=== PATIENT | female | born 1945 | race Caucasian/White ===

== ENCOUNTER 2017-06-22 20:09 | Observation (INO) ==
[2017-06-22] MEDS ORDERED: Furosemide 20 MG TABLET PO SCH (23:45)
[2017-06-22] MEDS ORDERED: Naloxone 0.4 MG/ML INJ IVP PRN (23:48)
[2017-06-22] MEDS ORDERED: predniSONE 20 MG TABLET PO ONE (23:53)
[2017-06-23] MEDS ORDERED: Gadolinium Contrast Agent (WT Based) IV PRN
--- NOTE | 2017-06-23 00:11 | Internal Med History&Physical ---
Date of Encounter: 06/23/17 Time of Encounter: 23:30 Internal Medicine - H&P: HPI Chief complaint: Transfer from [facility] for htn urgency Admitted From: Hospital to Hospital Transfer Plans for Post Hospital Care: Home History of present illness: Ms. Fernández is a 71 year old female with PMH of HTN, chronic neck pain, anxiety who was transferred from [facility] for management of severe headache secondary to hypertensive urgency. Pt reports of having diffuse severe throbbing headache since yesterday along with elevated blood pressure. She states her BP is always controlled with her home medications however that was not the case yesterday. She states she took excedrin yesterday with mild improvement in her headache. Since her headache and elevated BP persisted, she decided to go to the ER. In the ER she was noted to be severely hypertensive requiring initiation of Nicardipine drip and decision to transfer the patient to [facility] was made. During my evaluation, pt reports of having chronic neck pain, however she states her current head and neck pain is different than the chronic pain. She is noted to have improvement in her headache since her BP has been controlled, however she remains on Nicaridpine drip. She denies any pain radiating to her jaw or vision changes. Noted to have elevated ESR. CT findings reported chronic changes and no acute abnormality. Pt noted to have positive UA for UTI, however denies any urinary symptoms at this time. Denies any fevers or chills. Of note: Pt had chest pain few weeks ago and was seen by a security administrator on outpatient basis. She was found to be bradycardic and outpatient holter monitoring and echo was ordered. Pt has yet to undergo those testing. She denies any chest pain at this time. Past Med Surg Social Fam HX - Past Medical History Medical history: arthritis, GERD, hyperlipidemia, hypertension, pulmonary embolus, other Psychiatric history: no psych history - Past Surgical History Surgical History: appendectomy, cholecystectomy, knee replacement, orthopedic, other, other - Social History Smoking Status: Never smoker Smokeless Tobacco Status: No Alcohol use: none Drug use: none Internal Medicine - H&P: Meds Primidone [Mysoline] 50 mg PO TID 01/11/15 [History] Gabapentin [Gralise] 600 mg PO BID 02/02/16 [History] Oxybutynin [Ditropan] 5 mg PO BID 02/02/16 [History] Losartan/Hydrochlorothiazide [Losartan-Hctz 50-12.5 mg Tab] 1 each PO DAILY [History] Cholecalciferol (Vitamin D3) [Vitamin D] 1,000 unit PO DAILY 06/22/17 [History] Furosemide [Lasix] 20 mg PO AD 06/22/17 [History] Meloxicam 15 mg PO DAILY 06/22/17 [History] Potassium 20 meq PO DAILY 06/22/17 [History] Vistaril 25 mg PO BID 06/22/17 [History] Vitamin E 400 unit PO DAILY 06/22/17 [History] Zanaflex 4 mg PO BID 06/22/17 [History] 3 Allergy/AdvReac Type Severity Reaction Status Date / Time cephalexin [From Keflex] AdvReac Itching Verified 06/22/17 12:06 Sulfa (Sulfonamide AdvReac Itching Verified 06/22/17 12:06 Antibiotics) All Systems PM: A 10-system review of systems was performed and is negative for pertinent findings except as documented above in the HPI. - Constitutional Constitutional: as per HPI, no chills, no excessive sweating, no fatigue, no fever(s), no falls, no lethargy, no malaise, no night sweats - Constitutional Vitals: Temp Pulse Resp BP Pulse Ox 97.6 F 67 17 149/73 97 06/22/17 22:02 06/22/17 22:02 06/22/17 22:02 06/22/17 22:45 06/22/17 22:20 General appearance: Present: A&O X 3, no acute distress, obese, answers questions appropriately - Head Head exam: Present: atraumatic, normocephalic - Eye Eye exam: Present: conjuntiva pink, sclera anicteric - Respiratory Respiratory exam: Present: CTAB. Absent: accessory muscle use, rales, rhonchi, wheezes - Cardiovascular Cardiovascular exam: Present: RRR, +S1, +S2. Absent: diastolic murmur, gallop, rubs, systolic murmur - GI/Abdominal GI/Abdominal exam: Present: normal bowel sounds, soft, no peritoneal signs. Absent: distended, tenderness - Extremities Exam Extremities exam: Present: warm, radial pulses palpable and symmetrical. Absent : calf tenderness, cyanotic, pedal edema - Neurological Exam Neurological exam: Present: oriented X3 - Assessment and plan (1) Hypertensive urgency Current Visit: No Status: Acute Assessment and plan: Headache likely secondary to HTN urgency, however given clinical presentation and elevated ESR, will give one time dose of Prednisone 40mg PO Titrate off nicardipine drip as BP permits f/u MR head and neck continue home BP meds close monitoring of BP (2) Headache Current Visit: No Status: Acute Assessment and plan: plan as listed above Qualifiers: Headache type: unspecified Headache chronicity pattern: unspecified pattern Intractability: not intractable Qualified Code(s): R51 - Headache (3) UTI (urinary tract infection) Current Visit: No Status: Acute Assessment and plan: UA consistent with UTI, however pt asymptomatic hx of Kleb Pneumo UTI with intermediate sensitivity to Nitrofurantoin which is what the patient received prior to her transfer to the [facility] will start Levofloxacin f/u urine cultures Qualifiers: Urinary tract infection type: site unspecified Hematuria presence: without hematuria Qualified Code(s): N39.0 - Urinary tract infection, site not specified (4) DVT prophylaxis Current Visit: Yes Status: Acute Assessment and plan: Heparin SQ (5) Obesity (BMI 30-39.9) Current Visit: Yes Status: Acute - Time Spent With Patient Total time spent is greater than 50% in coordination of care (as documented) at patient's floor/unit and/or counseling patient:
[2017-06-23] MEDS: niCARdipine 40 MG/200 ML MLS IVC SCH ×2 (00:17→19:17)
[2017-06-23] MEDS: Gabapentin 300 MG CAPSULE PO SCH ×3 (00:18→20:03)
[2017-06-23] MEDS: *HR* OxyCODONE Immed Rel 5 MG TABLET PO PRN ×3 (00:18→17:12)
[2017-06-23 00:35] LABS: Basophils # 0.1 K/mcL (0.0-0.2); Basophils % 0.6 %; Eosinophils # 0.1 K/mcL (0.0-0.6); Eosinophils % 1.2 %; Hematocrit 44.3 % (35.3-44.9); Hemoglobin 14.5 g/dL (11.5-15.4); Immature Granulocytes % 0.3 % (0-4); Lymphocytes # 2.1 K/mcL (0.6-4.6); Lymphocytes % 18.8 %; Mean Corpuscular HGB Conc 32.7 g/dL (31.6-35.5); Mean Corpuscular Volume 94.9 fL (83.0-100.0); Mean Platelet Volume 9.8 fL (9.4-12.4); Monocytes # 0.5 K/mcL (0.0-1.3); Monocytes % 4.7 %; Neutrophils # 8.1 K/mcL (1.6-8.9); Platelet Count 285 K/mcL (140-400); Red Blood Count 4.67 M/mcL (3.82-4.97); Segmented Neutrophils % 74.4 %
[2017-06-23 00:56] LABS: BUN/Creatinine Ratio 30 (6-26); Blood Urea Nitrogen 18 mg/dL (8-23); Calcium 9.6 mg/dL (8.6-10.3); Carbon Dioxide 24 mEq/L (23-29); Chloride 106 mEq/L (98-107); Glucose 120 mg/dL (70-105); Osmolality,Calculated 289 (280-300); Phosphorous 3.2 mg/dL (2.7-4.5); Potassium 4.1 mEq/L (3.5-5.1); Sodium 138 mEq/L (136-145); eGFR For African Americans > 60 (> 60); eGFR For Non-African Americans > 60 (> 60)
[2017-06-23] MEDS: Levofloxacin 750 MG/150 ML 750 MG/150 ML BAG IVPB SCH (06:48)
[2017-06-23] MEDS: *HR* Heparin 5,000 UNIT/ML VIAL SQ SCH ×2 (06:49→17:12)
[2017-06-23] MEDS: Cholecalciferol (D-3) 1,000 UNIT TABLET PO SCH (08:56)
[2017-06-23] MEDS: Losartan/HCTZ 50-12.5 TABLET PO SCH (08:56)
[2017-06-23] MEDS: Primidone 50 MG TABLET PO SCH ×3 (08:57→20:03)
[2017-06-23] MEDS ORDERED: tiZANidine 4 MG TABLET PO SCH (09:00)
[2017-06-23] MEDS ORDERED: HYDROXYZINE PAMOATE 25 MG PO SCH (09:00)
[2017-06-23] MEDS: *HR* HYDROcodone/Acet 5/325 mg TABLET PO PRN ×2 (13:53→23:25)
--- NOTE | 2017-06-23 14:56 | Internal Med Progress Note ---
Date of Encounter: 06/23/17 Time of Encounter: 09:10 - Assessment and plan (1) Headache Current Visit: Yes Status: Acute Assessment and plan: most likely related to uncontrolled HTN; ESR is only mildly elevated and patient has no temporal pain/tenderness or blurred vision; will not continue steroids for temporal arteritis at this time; supportive care with PRN Tylenol and Oxycodone; MRI brain shows no acute abnormality; MRI C-Spine shows osteophytes and disc bulging at several sites; previous C4-6 surgery; Qualifiers: Headache type: unspecified Headache chronicity pattern: unspecified pattern Intractability: not intractable Qualified Code(s): R51 - Headache (2) Hypertensive urgency Current Visit: Yes Status: Acute Assessment and plan: BP improving; has been on Nicardipine drip, will wean off and resume oral home meds; low Na diet; check TTE; (3) UTI (urinary tract infection) Current Visit: Yes Status: Acute Assessment and plan: urinalysis s/o- UTI; preliminary urine culture with gram negative rods; f/up final culture and continue IV Levaquin; Qualifiers: Urinary tract infection type: site unspecified Hematuria presence: without hematuria Qualified Code(s): N39.0 - Urinary tract infection, site not specified (4) DVT prophylaxis Current Visit: Yes Status: Acute (5) Obesity (BMI 30-39.9) Current Visit: Yes Status: Chronic - Time Spent With Patient Total time spent is greater than 50% in coordination of care (as documented) at patient's floor/unit and/or counseling patient: - Subjective Interval history: Improving headache but has 5/10 posterior headache and neck pain, that is different from her chronic neck pain related to neck surgery; no chest pain, dyspnea, palpitations, leg welling; - Constitutional Vitals: Temp Pulse Resp BP Pulse Ox 97.8 F 85 16 141/80 95 06/23/17 11:18 06/23/17 13:49 06/23/17 13:49 06/23/17 13:49 06/23/17 11:18 General appearance: Present: A&O X 3, obese, answers questions appropriately - Respiratory Respiratory exam: Present: CTAB. Absent: accessory muscle use, rales, rhonchi, wheezes - Cardiovascular Cardiovascular exam: Present: RRR, +S1, +S2. Absent: diastolic murmur, gallop, rubs, systolic murmur - GI/Abdominal GI/Abdominal exam: Present: normal bowel sounds, soft, no peritoneal signs. Absent: distended, tenderness - Extremities Exam Extremities exam: Present: full ROM, warm, radial pulses palpable and symmetrical. Absent: calf tenderness, cyanotic, pedal edema - Neurological Exam Neurological exam: Present: CN II-XII intact, oriented X3, no focal deficits. Absent: pronater drift, facial droop, speech deficit Internal Medicine: Result - Labs CBC & Chem 7: 06/23/17 00:23 06/23/17 00:23 Labs: Short CBC 06/23/17 Range/Units 00:23 WBC 10.9 (4.3-11.1) K/mcL Hgb 14.5 (11.5-15.4) g/dL Hct 44.3 (35.3-44.9) % Plt Count 285 (140-400) K/mcL Neutrophils # 8.1 (1.6-8.9) K/mcL BMP 06/23/17 00:23 Sodium 138 Potassium 4.1 Chloride 106 Carbon Dioxide 24 BUN 18 Creatinine 0.60 Glucose 120 H Calcium 9.6 - Impressions Impressions Brain MRI 06/23/17 00:00 IMPRESSION: Moderate to severe chronic small vessel ischemic changes. No acute brain parenchymal abnormality. There is an 8.5 mm cystic lesion in the right parotid gland anteriorly of uncertain etiology. D/ / 06/23/2017 10:37:37 Martha Gabriel MD / [facility] [place] Interpreting Provider: Martha Gabriel MD Cervical Spine MRI 06/23/17 00:00 IMPRESSION: Previous cervical surgery from C4 through C6 posteriorly. Disc and osteophytes result in narrowing of the neural foramina throughout the cervical region as discussed above. There is stenosis of the thecal sac at C6-7. D/ / 06/23/2017 11:02:29 Martha Gabriel MD / [place] Interpreting Provider: Martha Gabriel MD Consult Discharge Plan - Plan Referrals: Keo Manuel, [Primary Care Provider] -
[2017-06-24] MEDS: Levofloxacin 750 MG/150 ML 750 MG/150 ML BAG IVPB SCH (00:25)
[2017-06-24] MEDS: *HR* Heparin 5,000 UNIT/ML VIAL SQ SCH (05:09)
[2017-06-24] MEDS: Primidone 50 MG TABLET PO SCH (07:48)
[2017-06-24] MEDS: Losartan/HCTZ 50-12.5 TABLET PO SCH (07:48)
[2017-06-24] MEDS: Gabapentin 300 MG CAPSULE PO SCH (07:48)
[2017-06-24] MEDS: Cholecalciferol (D-3) 1,000 UNIT TABLET PO SCH (07:49)
[2017-06-24 11:02] VITALS: BP 155/74
[2017-06-24] MEDS ORDERED: Menthol 9.1 MG LOZENGE PO PRN (11:11)
--- NOTE | 2017-06-24 12:25 | Discharge Summary ---
- NOTES TO OUTPATIENT PROVIDER Notes to Outpatient Provider: Uncontrolled HTN, headache Orders not resulted at time of discharge: Pending orders 06/23/17 00:06 Culture,Urine [RM] Stat Date of Encounter: 06/24/17 Time of Encounter: 09:15 - Discharge Diagnosis (1) Headache Priority: Primary Status: Resolved Qualifiers: Headache type: unspecified Headache chronicity pattern: unspecified pattern Intractability: not intractable Qualified Code(s): R51 - Headache (2) Hypertensive urgency Priority: Primary Status: Acute (3) UTI (urinary tract infection) Priority: Primary Status: Acute Qualifiers: Urinary tract infection type: site unspecified Hematuria presence: without hematuria Qualified Code(s): N39.0 - Urinary tract infection, site not specified (4) Obesity (BMI 30-39.9) Priority: Secondary Status: Chronic Hospital course: Ms. Fernández is a 71 year old female with the above medical problems, who was admitted with headache and noted to have uncontrolled hypertension. She was initially started on nicardipine drip with good improvement in blood pressure, later home medications were resumed. MRI brain showed no acute abnormality. Her headache was likely due to uncontrolled hypertension. Cervical spine MRI showed disc bulges at multiple levels but no acute abnormality, previous spinal fusion surgery changes. Echocardiogram showed preserved ejection fraction, mild left ventricular diastolic dysfunction. Patient was noted to have Escherichia coli UTI and is being discharged on Levaquin to complete a 5 day course. Discharge discussed with: patient, nurse - Time Spent with Patient Total time spent providing and/or coordinating discharge services: Greater than 30 minutes (40 min) - Discharge Medications Prescriptions: levoFLOXacin [Levaquin] 500 mg PO DAILY #3 tablet Home Medications: Oxybutynin [Ditropan] 5 mg PO BID 02/02/16 [History] Losartan/Hydrochlorothiazide [Losartan-Hctz 50-12.5 mg Tab] 1 tab PO DAILY 01/20 [History] Cholecalciferol (Vitamin D3) [Vitamin D3] 1,000 unit PO DAILY 06/22/17 [History] Meloxicam [Mobic] 15 mg PO DAILY 06/22/17 [History] Potassium Chloride [K-Tab ER] 20 meq PO DAILY 06/22/17 [History] Tizanidine HCl 4 mg PO BID 06/22/17 [History] Vitamin E 400 unit PO DAILY 06/22/17 [History] hydrOXYzine pamoate [HydrOXYzine Pamoate] 25 mg PO BID 06/22/17 [History] Furosemide [Lasix] 40 mg PO DAILY PRN 06/23/17 [History] Primidone [Mysoline] 50 mg PO TID 06/23/17 [History] Gabapentin [Neurontin] 600 mg PO BID #30 06/24/17 [Rx] levoFLOXacin [Levaquin] 500 mg PO DAILY #3 tablet 06/24/17 [Rx] Allergies/Adverse Reactions: 3 Allergy/AdvReac Type Severity Reaction Status Date / Time cephalexin [From Keflex] AdvReac Itching Verified 06/23/17 11:56 Sulfa (Sulfonamide AdvReac Itching Verified 06/23/17 11:56 Antibiotics) Date of admission: 06/22/17 23:52 Primary care physician: Keo Manuel DO Discharging clinician: Caroline Galeas Anticipated date of discharge: 06/24/17 - Constitutional Vitals: Temp Pulse Resp BP Pulse Ox 97.6 F 76 16 155/74 96 06/24/17 11:00 06/24/17 11:00 06/24/17 11:00 06/24/17 11:00 06/24/17 06:46 General appearance: Present: A&O X 3, obese, answers questions appropriately - Cardiovascular Cardiovascular exam: Present: RRR, +S1, +S2. Absent: diastolic murmur, gallop, rubs, systolic murmur - Patient Status Disposition: Home, Self-Care Condition: Good Functional capacity at discharge: independent ambulation Overall status at discharge: patient is progressing back to baseline - Discharge Instructions Instructions: Levofloxacin (By mouth), Urinary Tract Infection in Women (DC), Chronic Hypertension (DC) Follow Up With: Shiloh Ballesteros MD [Partnered Physician] - (Cardiology will call and set up appointment ) Keo Manuel DO [Primary Care Provider] - Additional Instructions: F/up with PCP in 1-2 weeks F/up with Cardiology as scheduled - Diet and Activity Activity: resume usual activities as tolerated Diet: low fat, low cholesterol, low salt diet
== END 2017-06-24 15:13 | disposition home or self-care (01) ==
LOC: 2NNU → SUATTDRO 23:52
PROVIDERS: ADMIT Internal Medicine; ATTEND Internal Medicine

== ENCOUNTER 2017-09-07 18:08 | Inpatient (IN) ==
[2017-09-07] MEDS ORDERED: Isovue-370 500 ML INFUS..BTL IV ONE (20:22)
--- NOTE | 2017-09-07 21:02 | Internal Med History&Physical ---
Date of Encounter: 09/07/17 Time of Encounter: 20:56 Internal Medicine - H&P: HPI Chief complaint: confusion Admitted From: Home Plans for Post Hospital Care: Home History of present illness: Ms. Fernández is a 71 year old female with a reported history of hypertension, essential tremor for which she takes primidone although was told by her primary care provider that she has Parkinson's disease and prior history of pulmonary embolism who was taken to the emergency room at [place] by her daughter with complaints of confusion that started yesterday that was noted on telephone conversation. As per the daughter when they spoke last night on phone and she seems really altered with her words and confused and this morning went to see her in the home and was notably in a confused state. The only complaint she reported was having diarrhea that started yesterday witnessed to be bright green and watery in consistency and having multiple episodes yesterday and today this up to this afternoon. She denied any associated abdominal pain, nausea or vomiting. The daughter reports that she did complain of some chest discomfort and heartburn yesterday. Of note she has been treated multiple times for recurrent urinary tract infections and has been on and off antibiotics up until about a month ago. It was believed that she may have another urinary tract infection those inducing the status alteration in however when her urine was analyzed at [place] was seen to be grossly unremarkable. A head CT was done which showed no acute anomalies however a serum troponin was obtained that was mildly elevated with no characteristic ischemic electrocardiographic changes. She was transferred here for further care. On my assessment the patient states that she is here because she is confused although now she seems to be much better after receiving fluids. States that her appetite has been poor because of the diarrhea. She denies any chest pain, diaphoresis, dyspnea or abdominal pain. She equally denies dysuria and flank pain. Although her speech is slow she is able to speak coherently and provide appropriate information. She reports no known psychiatric history. Of note the daughter states that the patient has a history of atrial fibrillation and was previously on anticoagulants however stopped them because she could no longer afford it. Past Med Surg Social Fam HX - Past Medical History Medical history: arthritis, GERD, hyperlipidemia, hypertension, pulmonary embolus, other Additional medical history: parkinson's Psychiatric history: no psych history - Past Surgical History Surgical History: appendectomy, cholecystectomy, knee replacement (Left), orthopedic, other (Lumbar fixation in November 2015, neck surgery), other (Lung wedge resection, bladder surgeries) Additional surgical history: Bladder surgery. Lung biopsy. Left total knee. lower spine back sx - Social History Smoking Status: Never smoker Smokeless Tobacco Status: No Alcohol use: none Drug use: none Internal Medicine - H&P: Meds Oxybutynin [Ditropan] 5 mg PO BID 02/02/16 [History] Losartan/Hydrochlorothiazide [Losartan-Hctz 50-12.5 mg Tab] 1 tab PO DAILY 01/20 [History] Cholecalciferol (Vitamin D3) [Vitamin D3] 1,000 unit PO DAILY 06/22/17 [History] Meloxicam [Mobic] 15 mg PO DAILY 06/22/17 [History] Potassium Chloride [K-Tab ER] 20 meq PO DAILY 06/22/17 [History] Tizanidine HCl 4 mg PO BID 06/22/17 [History] hydrOXYzine pamoate [HydrOXYzine Pamoate] 25 mg PO BID 06/22/17 [History] Furosemide [Lasix] 40 mg PO DAILY PRN 06/23/17 [History] Primidone [Mysoline] 50 mg PO TID 06/23/17 [History] Gabapentin [Neurontin] 600 mg PO BID #30 06/24/17 [Rx] 3 Allergy/AdvReac Type Severity Reaction Status Date / Time cephalexin [From Keflex] AdvReac Itching Verified 09/07/17 15:30 Sulfa (Sulfonamide AdvReac Itching Verified 09/07/17 15:30 Antibiotics) All Systems PM: A 10-system review of systems was performed and is negative for pertinent findings except as documented above in the HPI. - Constitutional Vitals: Temp Pulse Resp BP Pulse Ox 98.3 F 70 16 184/119 96 09/07/17 19:58 09/07/17 19:58 09/07/17 19:58 09/07/17 19:58 09/07/17 19:58 Exam: Vitals: Reviewed and notable for elevated BP General: Well-developed elderly woman lying comfortably in bed in no acute distress Skin: No lesions or ulcers HEENT: Slightly dry oral mucous membranes. Neck: No lymphadenopathy. No JVD. Chest: No wheezes, rales or rhonchi Heart: Normal S1 & S2; rhythmic. Abdomen: Non-distended, soft and non-tender to palpation. No peritoneal reaction. Extremities: No clubbing, cyanosis. Neurological: Awake, alert and oriented to person, place and time. No focal deficits. Psych: Appropriate affect. - Assessment and plan (1) Confusion Current Visit: Yes Status: Acute Assessment and plan: Unclear etiology. The patient's urinalysis is not indicative of a urinary tract infection and nor does she have clinical signs of one at this time in spite of her history. There may be multiple factors to consider including dehydration from GI fluid losses coupled with poor oral intake, a metabolic abnormality given the serum TSH level, a vascular process noting the elevated d-dimer and troponin level, interaction between her medications noting that quinolones and tizanidine can cause drowsiness amongst other interactions noted. It does seem she has improved as stated by the patient and her daughter since arriving and the only intervention received was fluids. -Will continue IVF overnight with LR. -Strict bedrest and fall precautions due to her unsteady state. -Minimize sedative medications for now, holding gabapentin and tizanidine temporarily. (2) Hypertension Current Visit: Yes Status: Chronic Assessment and plan: Poorly controlled. -Will continue losartan only for now and hold the furosemide and hctz seen as part of her home medications given her current dry state. Qualifiers: Hypertension type: essential hypertension Qualified Code(s): I10 - Essential (primary) hypertension (3) Paroxysmal atrial fibrillation Current Visit: Yes Status: Chronic Assessment and plan: Will obtain a repeat EKG and place on telemetry. [id number] score of 4 warrants anticoagulation however so far she appears to be in normal sinus rhythm and rate controlled. -Further discussion on need for anticoagulation can be discussed once more stable. (4) Low TSH level Current Visit: Yes Status: Acute Assessment and plan: She denies a history of thyroid affectation. Unclear if this is due to her acute ill state or if it is contributing. -Will send serum free T3 and T4 levels and based on the results may need endocrine evaluation. (5) Familial tremor Current Visit: Yes Status: Chronic Assessment and plan: Will continue primidone. (6) Elevated troponin Current Visit: Yes Status: Acute Assessment and plan: The patient is known to have had mildly elevated troponins in the past. She has no clinical igns of ACS at the moment however an acute confusional state could be transportation services representative of a low flow state. -We will continue to trend and if there is an upward increase will start ACS protocol. -Given the concomitant d-dimer elevation, will also rule out PE. (7) D-dimer, elevated Current Visit: Yes Status: Acute Assessment and plan: As stated above, this coupled with an elevated troponin, acute confusional state , report of chest discomfort and prior VTE in the past, it would be prudent to rule out PE with a CTA. (8) Diarrhea Current Visit: Yes Status: Acute Assessment and plan: The patient reportedly had multiple episodes of diarrhea over the last 24 hours. Given her history of recurrent antibiotic use and hospitalizations, would be prudent to rule out C.diff. So far she has not had any diarrheic depositions since arrival however the nurse has been instructed to obtain a specimen if she does produce a watery sample and should be sent for C.diff testing and placed on contact isolation precautions in the interim. Qualifiers: Diarrhea type: presumed infectious Qualified Code(s): R19.7 - Diarrhea, unspecified (9) Obesity (BMI 30-39.9) Current Visit: Yes Status: Chronic Assessment and plan: Will benefit from therapeutic lifestyle changes and ship worker evaluation as an outpatient. (10) DVT prophylaxis Current Visit: Yes Status: Acute Assessment and plan: SubQ heparin ordered. - Time Spent With Patient Total time spent is greater than 50% in coordination of care (as documented) at patient's floor/unit and/or counseling patient: Greater than 35 minutes
[2017-09-07] MEDS: Primidone 50 MG TABLET PO SCH (22:12)
[2017-09-07] MEDS: *HR* Heparin 5,000 UNIT/ML VIAL SQ SCH (22:12)
[2017-09-07] MEDS: Ringers Solution, Lactated 1,000 ML IVC SCH (22:12)
[2017-09-07] MEDS ORDERED: Aspirin 325 MG TABLET PO ONE (22:56)
--- NOTE | 2017-09-07 23:43 | Event Note ---
Date of Encounter: 09/07/17 Time of Encounter: 23:34 Patient with highly elevated blood pressures in spite of oral losartan 100mg that was given a few hours ago. Troponin stable at 0.07. Chest CT negative for PE. Possible troponin elevation from demand in the setting of accelerated HTN. Will give 10mg hydralazine for now and monitor. Repeat troponin in 4 hours and order TTE in the morning with consideration for cardiology consultation. 325mg ASA to be given and will hold off on anticoagulation unless there is a change in her hemodynamics or increase in serum troponin. EKG with normal sinus rhythm and rate of 68.
[2017-09-08 04:27] LABS: Basophils # 0.1 K/mcL (0.0-0.2); Basophils % 0.5 %; Eosinophils # 0.1 K/mcL (0.0-0.6); Eosinophils % 0.6 %; Hematocrit 43.6 % (35.3-44.9); Hemoglobin 14.7 g/dL (11.5-15.4); Immature Granulocytes % 0.5 % (0-4); Lymphocytes # 2.7 K/mcL (0.6-4.6); Lymphocytes % 22.9 %; Mean Corpuscular HGB Conc 33.7 g/dL (31.6-35.5); Mean Corpuscular Hemoglobin 31.7 pg (28.0-33.3); Mean Platelet Volume 10.3 fL (9.4-12.4); Monocytes # 0.7 K/mcL (0.0-1.3); Monocytes % 6.1 %; Neutrophils # 8.3 K/mcL (1.6-8.9); Platelet Count 334 K/mcL (140-400); Red Blood Count 4.64 M/mcL (3.82-4.97); Red Cell Distribution Width 13.5 % (11.5-14.5); Segmented Neutrophils % 69.4 %
[2017-09-08 04:31] LABS: INR 1.1; Prothrombin Time 12.3 Seconds (9.4-12.1)
[2017-09-08 04:47] LABS: BUN/Creatinine Ratio 23 (6-26); Blood Urea Nitrogen 16 mg/dL (8-23); Calcium 9.6 mg/dL (8.6-10.3); Carbon Dioxide 21 mEq/L (23-29); Chloride 106 mEq/L (98-107); Glucose 123 mg/dL (70-105); Osmolality,Calculated 289 (280-300); Potassium 3.6 mEq/L (3.5-5.1); Sodium 138 mEq/L (136-145); eGFR For Non-African Americans > 60 (> 60)
[2017-09-08 05:03] LABS: Triiodothyronine (T3) Free 2.92 pg/mL (2.50-3.90)
[2017-09-08 05:07] LABS: Triiodothyronine (T3) Total 0.91 ng/mL (0.87-1.78)
[2017-09-08] MEDS: *HR* Heparin 5,000 UNIT/ML VIAL SQ SCH ×3 (05:46→21:54)
[2017-09-08] MEDS: Aspirin 81 MG TAB.CHEW PO SCH (09:00)
[2017-09-08] MEDS: Cholecalciferol (D-3) 1,000 UNIT TABLET PO SCH (09:00)
[2017-09-08] MEDS: Primidone 50 MG TABLET PO SCH ×3 (09:00→20:42)
[2017-09-08] MEDS: Ringers Solution, Lactated 1,000 ML IVC SCH ×3 (09:01→22:56)
[2017-09-08] MEDS ORDERED: Acetaminophen 325 MG TABLET PO PRN (09:05)
[2017-09-08] MEDS ORDERED: Ondansetron 4 MG/2 ML VIAL IVP PRN (10:28)
[2017-09-08] MEDS ORDERED: Ondansetron 4 MG/2 ML VIAL IVP SCH (12:00)
--- NOTE | 2017-09-08 13:29 | Neurology - Consult Note ---
Date of Encounter: 09/08/17 Time of Encounter: 13:23 Assessment and Plan (1) Hypertensive encephalopathy Current Visit: Yes Status: Acute At this juncture I believe that the malignant hypertension is likely the brain for this presentation. Certainly can cause severe headaches that a migrainous in presentation, can also recalls lethargy and confusion. Clinically she is improving since her blood pressure has come down. The MRI showed no evidence of hemorrhage or acute infarct. It does however reveal evidence of chronic ischemic white matter change likely due to uncontrolled blood pressure over the years. I do not feel that other medical causes for her headache and mental status changes are likely. Her lab panel was fairly unremarkable, and I do not feel that her medications of the calls. She is not febrile. She has no nuchal rigidity. For now we should focus on management of her hypertension, and management of her headaches. She can have Fioricet one every 4 hours or so as needed for headache. I will reassess her tomorrow. History of Present Illness HPI: Chart was reviewed, the patient was seen and examined. Case was discussed with family as well as the attending hospitalist. Ms. Fernández is a 71 year old female who is seen for neurologic consultation secondary to acute mental status changes in the face of malignant hypertension. On the day of admission her daughter who lives in [place] had been talking to her on the phone. It was clear to her that her mother was not coherent. She kept repeating one phrase over and over "that is about all I did today". She called another sister who lives locally who came by the house. The patient had been was also at the house, however they each study at separate ends of the house and he was sleeping in his room. He was unaware of the situation. Upon arrival to the hospital she was very confused and complained of a severe headache. Apparently she also had an episode of bright green colored diarrhea. When the family arrived at the house she had not clean herself up properly which is very much out of the norm for her behavior. She is normally alert and coherent. She has been known to have elevated blood pressure previously. Upon arrival to [facility] her blood pressure was recorded at 228/149. Her blood pressure has responded to therapy and is closer to normal now. Although she still has a severe headache her mental status is clinically improving however is not back to baseline. Review of her medication list is negative for any offending agents. Otherwise she is afebrile. Her blood work is essentially normal. 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 Past Med Surg Social Fam HX - Past Medical History Medical history: arthritis, GERD, hyperlipidemia, hypertension, pulmonary embolus, other Additional medical history: parkinson's Psychiatric history: no psych history - Past Surgical History Surgical History: appendectomy, cholecystectomy, knee replacement (Left), orthopedic, other (Lumbar fixation in November 2015, neck surgery), other (Lung wedge resection, bladder surgeries) Additional surgical history: Bladder surgery. Lung biopsy. Left total knee. lower spine back sx - Social History Smoking Status: Never smoker Smokeless Tobacco Status: No Alcohol use: none Drug use: none - Family History Mother Living Status: Hx Family Neurologic Disorders: Yes (alzhemiers) Father Living Status: Cause of : SC Hx Family Cardiac Disorders: Yes (SC) Medications and Allergies Oxybutynin [Ditropan] 5 mg PO BID 02/02/16 [History] Losartan/Hydrochlorothiazide [Losartan-Hctz 50-12.5 mg Tab] 1 tab PO DAILY 01/20 [History] Cholecalciferol (Vitamin D3) [Vitamin D3] 1,000 unit PO DAILY 06/22/17 [History] Meloxicam [Mobic] 15 mg PO DAILY 06/22/17 [History] Tizanidine HCl 4 mg PO TID PRN 06/22/17 [History] hydrOXYzine pamoate [HydrOXYzine Pamoate] 25 mg PO BID PRN 06/22/17 [History] Furosemide [Lasix] 40 mg PO DAILY PRN 06/23/17 [History] Primidone [Mysoline] 50 mg PO TID 06/23/17 [History] 3 Allergy/AdvReac Type Severity Reaction Status Date / Time cephalexin [From Keflex] AdvReac Itching Verified 09/07/17 15:30 Sulfa (Sulfonamide AdvReac Itching Verified 09/07/17 15:30 Antibiotics) All Systems: The remainder of the systems were reviewed and are negative Review of Systems: The balance of the systems review is negative. Physical Examination - Vital Signs Vital Signs: Initial Vital Signs Temp Pulse Resp BP Pulse Ox 98.3 F 70 16 184/119 96 09/07/17 19:58 09/07/17 19:58 09/07/17 19:58 09/07/17 19:58 09/07/17 19:58 - Neurologic Detailed motor examination: other (It was difficult to assess strength in the traditional neurologic manner she remains a bit somnolent and confused. However she has normal tone throughout. No focal or lateralized deficits are present. She does have a titubation head tremor.) Detailed sensory examination: intact Reflexes: Biceps: 2+ (Symmetrically), Triceps: 2+ ("), Brachioradialis: 2+ ("), Patella: 2+ ("), Achilles: 2+ (") Mental Status Examination: awake, oriented to person, oriented to place, oriented to time, drowsy Cranial nerve examination: PERRL, EOMI, sensory to face intact, mastication intact, no facial asymmetry is present, no dysarthria, tongue protrudes midline Results - Laboratory Findings CBC and BMP: 09/08/17 03:27 09/08/17 03:27 Abnormal lab findings: Abnormal lab results WBC 11.9 K/mcL (4.3-11.1) H D 09/08/17 03:27 PT 12.3 Seconds (9.4-12.1) H 09/08/17 03:27 Carbon Dioxide 21 mEq/L (23-29) L 09/08/17 03:27 Glucose 123 mg/dL (70-105) H 09/08/17 03:27 Thyroxine (T4) 11.03 mcg/dL (5.50-11.00) H 09/08/17 03:27 Consult Discharge Plan - Plan Referrals: NONE,PCP [Primary Care Provider] -
[2017-09-08] MEDS: Acetaminophen/Butalbital/CaffeineTABLET PO PRN (14:11)
--- NOTE | 2017-09-08 15:28 | Internal Med Progress Note ---
Hospitalist Progress Note - Encounter Date of Encounter: 09/08/17 Time of Encounter: 10:40 - Subjective Interval History: Patient was seen and assessed at bedside at 10:40 AM. Patient was lethargic, slow to respond, bloating and pain. Lying in darkened room with has been at bedside. Patient exceptionally weak, slow to follow commands. Pt states that her entire head hurt and she was vomiting. at bedside. - Exam Vitals: Temp Pulse Resp BP Pulse Ox 97.6 F 82 17 128/75 94 09/08/17 11:17 09/08/17 11:17 09/08/17 11:17 09/08/17 11:17 09/08/17 11:17 - Assessment and Plan (1) Hypertension Current Visit: Yes Status: Chronic Assessment and Plan: Poorly controlled. Hypertensive crisis this a.m with BP 228/140. Pt had headache , weakness, AMS. BP improved with home medications and IV hydralazine. Vitals q2h while awake. Hydralazine 10mg IVP q6h prn SBP > 180mmHg, DBP> 90mmHg. (2) Paroxysmal atrial fibrillation Current Visit: Yes Status: Chronic Assessment and Plan: Continue telemetry. OOT2PW2-Tosq score of 4 warrants anticoagulation however, she appears to still be in normal sinus rhythm and rate controlled. -Further discussion on need for anticoagulation can be discussed once more stable. (3) Familial tremor Current Visit: Yes Status: Chronic Assessment and Plan: Will continue primidone. Chronic (4) DVT prophylaxis Current Visit: Yes Status: Acute Assessment and Plan: Heparin SQ (5) Obesity (BMI 30-39.9) Current Visit: Yes Status: Chronic Assessment and Plan: Chronic. Encourage lifestyle modifications. (6) Elevated troponin Current Visit: Yes Status: Inactive Assessment and Plan: Mildy elevated troponin, flat, adynamic elevation in the setting of uncontrolled HTN. -We will continue to trend and if there is an upward increase will start ACS protocol. Continue telemetry. (7) Confusion Current Visit: Yes Status: Inactive Assessment and Plan: Unclear etiology, though may be due to hypertension. UAnegative, fluid balance is WNL, electrolytes WNL. T4 elevated. D-dimer elevated, CTA negative for PE or acute pulmonary process, troponins elevated, but have returned to baseline. Pt had hypertensive crisis this am and was very confused, weak, lethargic, had 10/10 global headache with n/v. See above for hypertensive encephalopathy Continue to monitor for falls and safety Continue telemetry Continue to monitor VS q2h IV hydralazine prn Monitor labs Hold sedating medications (8) Low TSH level Current Visit: Yes Status: Acute (9) Diarrhea Current Visit: Yes Status: Acute Assessment and Plan: The patient reportedly had multiple episodes of "neon green" diarrhea over the last 24 hours. Given her history of recurrent antibiotic use and hospitalizations, would be prudent to rule out C.diff. So far she has not had diarrhea since arrival however the nurse has been instructed to obtain a specimen if she does produce a watery sample and should be sent for C.diff testing and placed on contact isolation precautions in the interim. Pt has mild leukocytosis, no fever, chills, or abdominal pain or cramping. Stool panel ordered (10) D-dimer, elevated Current Visit: Yes Status: Acute Assessment and Plan: Chest CTA negative for PE, pneumonia, and mild/early subpleural fibrosis. Pt is not requiring supplemental 02, lungs are clear, no distress, no chest pain Plan as above. (11) Hypertensive encephalopathy Current Visit: Yes Status: Acute Assessment and Plan: Pt had episode this a.m of global, 10/10 headache with nausea and vomiting, weakness, altered mental status Pt had negative CT on admission. MRI obtained and was negative for acute intracranial abnormality. 1 cm right parotid cystic lesion noted. Initial BP 224/140, Hydralazine 10mg IV given and BP decreased, normalized and pt's condition seemed to improve. She was given a Fiorcet after MRI negative Pt was evaluated by neurology, noted that MRI showed evidence of chronic ischemic white matter change likely due to uncontrolled HTN over the years. Continue to treat blood pressure, vitals every 2 hours while awake, treat headache as needed, assessed patient's mental status and labs. - Time Spent with Patient Total time spent is greater than 50% in coordination of care (as documented) at patient's floor/unit and/or counseling patient: 25 - 35 minutes Plan of Care Discussed with: patient Internal Medicine: Result - Labs CBC & Chem 7: 09/08/17 03:27 09/08/17 03:27 Labs: Short CBC 09/08/17 Range/Units 03:27 WBC 11.9 H D (4.3-11.1) K/mcL Hgb 14.7 (11.5-15.4) g/dL Hct 43.6 (35.3-44.9) % Plt Count 334 (140-400) K/mcL Neutrophils # 8.3 (1.6-8.9) K/mcL BMP 09/08/17 03:27 Sodium 138 Potassium 3.6 Chloride 106 Carbon Dioxide 21 L BUN 16 Creatinine 0.70 Glucose 123 H Calcium 9.6 Cardiac Enzymes 09/07/17 09/08/17 09/08/17 Range/Units 22:08 03:27 09:59 Troponin I 0.07 H* 0.05 H* 0.03 (< 0.04) ng/mL - ABG Interpretation ABG results: PT/INR, D-dimer PT 12.3 Seconds (9.4-12.1) H 09/08/17 03:27 - Impressions Impressions Chest CTA 09/07/17 20:22 IMPRESSION: 1. No evidence for acute pulmonary embolism. 2. No evidence for pneumonia. 3. Mild/early subpleural fibrosis. D/ / Rizwan Morrison MD / Rizwan Morrison MD Interpreting Provider: Rizwan Morrison MD Echocardiogram 09/08/17 04:23 Impressions: Mild aortic regurgitation. Mild aortic stenosis. Mild left ventricular diastolic dysfunction. Estimated RVSP is 37 mmHg. LVEF 55-60%, no diagnostic wall motion abnormality Left Ventricular Wall Motion: Rest Echo Findings All wall segments showed normal motion. Findings: Study Quality * Technically adequate exam. Right Ventricle * Normal right ventricular structure and function. Right Atrium * Normal right atrial size. Interatrial Septum * No evidence of PFO by color Doppler. Aorta * Normally sized aortic root. Pericardium * The pericardium appears normal. Mitral Valve * Normal mitral valve structure. * No mitral stenosis. * Mild mitral regurgitation. Aortic Valve * Mild aortic regurgitation. * Severely calcified aortic valve leaflets. * Mild aortic stenosis. * Peak and mean gradients are 31 16 mmHg, respectively. Pulmonic Valve * No pulmonic stenosis. * Trace pulmonic regurgitation. Pulmonary Artery * Normal visualized portions of the main pulmonary artery. Left Ventricle * Mild left ventricular diastolic dysfunction. * LVEF 55-60%. Left Atrium * Severely dilated left atrium. Tricuspid Valve * Trace tricuspid regurgitation. * No tricuspid stenosis. * Estimated RVSP is 37 mmHg. * Estimated RA pressure is 0-5 mmHg. Brain MRI 09/08/17 11:10 IMPRESSION: No acute intracranial abnormality. 1 cm right parotid cystic lesion. D/ / 09/08/2017 12:43:16 Nicko Morales MD / mimi Interpreting Provider: Nicko Morales MD Consult Discharge Plan - Plan Referrals: NONE,PCP [Primary Care Provider] - (1) Hypertension Qualifiers: Hypertension type: essential hypertension Qualified Code(s): I10 - Essential (primary) hypertension (9) Diarrhea Qualifiers: Diarrhea type: presumed infectious Qualified Code(s): R19.7 - Diarrhea, unspecified
[2017-09-09] MEDS: *HR* Heparin 5,000 UNIT/ML VIAL SQ SCH (05:44)
[2017-09-09 07:11] LABS: Basophils # 0.1 K/mcL (0.0-0.2); Basophils % 0.8 %; Eosinophils # 0.2 K/mcL (0.0-0.6); Eosinophils % 2.6 %; Hematocrit 37.2 % (35.3-44.9); Immature Granulocytes % 0.2 % (0-4); Lymphocytes # 3.1 K/mcL (0.6-4.6); Lymphocytes % 37.2 %; Mean Corpuscular HGB Conc 32.8 g/dL (31.6-35.5); Mean Corpuscular Hemoglobin 30.8 pg (28.0-33.3); Mean Corpuscular Volume 93.9 fL (83.0-100.0); Mean Platelet Volume 9.7 fL (9.4-12.4); Monocytes # 0.7 K/mcL (0.0-1.3); Monocytes % 8.8 %; Neutrophils # 4.2 K/mcL (1.6-8.9); Platelet Count 284 K/mcL (140-400); Red Blood Count 3.96 M/mcL (3.82-4.97); Red Cell Distribution Width 13.7 % (11.5-14.5); Segmented Neutrophils % 50.4 %
[2017-09-09 07:22] LABS: Hemoglobin 12.2 g/dL (11.5-15.4)
[2017-09-09] MEDS ORDERED: tiZANidine 4 MG TABLET PO PRN (07:28)
[2017-09-09] MEDS ORDERED: Furosemide 40 MG TABLET PO PRN (07:28)
[2017-09-09] MEDS ORDERED: hydrOXYzine pamoate 25 MG CAPSULE PO PRN (07:28)
[2017-09-09] MEDS: Acetaminophen/Butalbital/CaffeineTABLET PO PRN (08:17)
[2017-09-09] MEDS: Ringers Solution, Lactated 1,000 ML IVC SCH (08:17)
[2017-09-09] MEDS: Aspirin 81 MG TAB.CHEW PO SCH (08:18)
[2017-09-09] MEDS: Primidone 50 MG TABLET PO SCH (08:18)
[2017-09-09] MEDS: Cholecalciferol (D-3) 1,000 UNIT TABLET PO SCH (08:18)
[2017-09-09] MEDS ORDERED: Losartan/HCTZ 50-12.5 TABLET PO SCH (09:00)
[2017-09-09 09:58] LABS: BUN/Creatinine Ratio 21 (6-26); Blood Urea Nitrogen 13 mg/dL (8-23); Calcium 8.9 mg/dL (8.6-10.3); Carbon Dioxide 24 mEq/L (23-29); Chloride 107 mEq/L (98-107); Glucose 97 mg/dL (70-105); Osmolality,Calculated 284 (280-300); Potassium 3.7 mEq/L (3.5-5.1); Sodium 137 mEq/L (136-145); eGFR For Non-African Americans > 60 (> 60)
--- NOTE | 2017-09-09 11:25 | Discharge Summary ---
- NOTES TO OUTPATIENT PROVIDER Notes to Outpatient Provider: Pt treated for hypertensive encephalopathy, pt will need close outpatient monitoring for blood pressure and medication adjustments if needed. Orders not resulted at time of discharge: Pending orders 09/07/17 20:06 ECG 12 lead ECG [ECG] Stat 09/08/17 15:45 GI Panel,Stool [MOLMIC] Routine 09/10/17 04:00 Basic Metabolic Panel AM 0400 Complete Blood Count [HEME] AM 0400 Date of Encounter: 09/09/17 Time of Encounter: 09:00 - Discharge Diagnosis (1) Confusion Priority: Primary Status: Inactive Assessment and Plan: Likely due to uncontrolled HTN UA negative, fluid balance is WNL, electrolytes WNL. T4 elevated, recheck when pt is not acutely ill. D-dimer elevated, CTA negative for PE or acute pulmonary process, troponins elevated, but have returned to baseline. Pt had hypertensive crisis this am and was very confused, weak, lethargic, had 10/10 global headache with n/v. See above for hypertensive encephalopathy 09/09- Pt has returned to baseline. Pt is ready for discharge. (2) Hypertension Priority: Secondary Status: Chronic Assessment and Plan: Stable and well controlled with current medications. Pt states that she has Clonidine prn at home, encourage pt to continue this medication and to not miss or skip doses of her medications. Qualifiers: Hypertension type: essential hypertension Qualified Code(s): I10 - Essential (primary) hypertension (3) Paroxysmal atrial fibrillation Priority: Secondary Status: Chronic Assessment and Plan: Continue telemetry. [id number] score of 4 warrants anticoagulation however, she has been on anticoagulation in the past and stopped them herself because she was unable to afford them. Pt has follow up appointment with Dr. Ballesteros in the office on 09/14, I spoke with cardiology [facility] and they will discuss anticoagulation at the appointment. I have sent a prescription to her pharmacy to start Xarelto 20mg po daily and we can start preauthorization process. (4) Familial tremor Priority: Secondary Status: Chronic Assessment and Plan: Chronic. Will continue primidone. (5) DVT prophylaxis Priority: Secondary Status: Acute Assessment and Plan: Heparin SQ (6) Obesity (BMI 30-39.9) Priority: Secondary Status: Chronic Assessment and Plan: Chronic. Encourage lifestyle modifications. (7) Elevated troponin Priority: Secondary Status: Inactive Assessment and Plan: Flat, adynamic elevation in the setting of uncontrolled hypertension. Pt had no chest pain and troponins returned to normal. (8) Low TSH level Priority: Secondary Status: Acute Assessment and Plan: Reevaluate when pt is not acutely ill. (9) Diarrhea Priority: Secondary Status: Acute Assessment and Plan: Pt had diarrhea prior to arrival, GI panel ordered. No diarrhea, not collected. Qualifiers: Diarrhea type: presumed infectious Qualified Code(s): R19.7 - Diarrhea, unspecified (10) D-dimer, elevated Priority: Secondary Status: Acute Assessment and Plan: Chest CTA negative for PE, pneumonia, and mild/early subpleural fibrosis. Pt is not requiring supplemental 02, lungs are clear, no distress, no chest pain Plan as above. (11) Hypertensive encephalopathy Priority: Secondary Status: Acute Assessment and Plan: Pt had episode this a.m of global, 10/10 headache with nausea and vomiting, weakness, altered mental status Pt had negative CT on admission. MRI obtained and was negative for acute intracranial abnormality. 1 cm right parotid cystic lesion noted. Initial BP 224/140, Hydralazine 10mg IV given and BP decreased, normalized and pt's condition seemed to improve. She was given a Fiorcet after MRI negative Pt was evaluated by neurology, noted that MRI showed evidence of chronic ischemic white matter change likely due to uncontrolled HTN over the years. 8/5- Pt has returned to baseline mentation, she denies headache or vision changes, no nausea or vomiting, no chest pain. Blood opressure is controlled now. Pt has Clonidine prn for HTN. I have encouraged pt to take it early when she notes that her BP is elevated to avoid further problems. Hospital course: Ms. Fernández is a 71 year old female with PMH including: COPD, acute bronchitis, HTN, paroxysmal a-fib, tremor, Obesity. Patient presented to the emergency department with new onset confusion, likely secondary to hypertension. Patient had hypertensive crisis on second morning of admission MRI was negative. Neurology was consulted. Patient required pain medication as well as control of hypertension. Relief headache. Labs and vitals are stable, patient's blood pressure is well controlled. She has clonidine at home as needed for hypertension, as well as her other antihypertensives. Patient will be discharged in stable condition Discharge discussed with: patient - Time Spent with Patient Total time spent providing and/or coordinating discharge services: Less than 30 minutes - Discharge Medications Prescriptions: Aspirin 81 mg PO DAILY #30 tab.chew Rivaroxaban [Xarelto] 20 mg PO DAILY #30 tablet Home Medications: Oxybutynin [Ditropan] 5 mg PO BID 02/02/16 [History] Losartan/Hydrochlorothiazide [Losartan-Hctz 50-12.5 mg Tab] 1 tab PO DAILY 01/20 [History] Cholecalciferol (Vitamin D3) [Vitamin D3] 1,000 unit PO DAILY 06/22/17 [History] Meloxicam [Mobic] 15 mg PO DAILY 06/22/17 [History] Tizanidine HCl 4 mg PO TID PRN 06/22/17 [History] hydrOXYzine pamoate [HydrOXYzine Pamoate] 25 mg PO BID PRN 06/22/17 [History] Furosemide [Lasix] 40 mg PO DAILY PRN 06/23/17 [History] Primidone [Mysoline] 50 mg PO TID 06/23/17 [History] Aspirin 81 mg PO DAILY #30 tab.chew 09/09/17 [Rx] Rivaroxaban [Xarelto] 20 mg PO DAILY #30 tablet 09/09/17 [Rx] Allergies/Adverse Reactions: 3 Allergy/AdvReac Type Severity Reaction Status Date / Time cephalexin [From Keflex] AdvReac Itching Verified 09/07/17 15:30 Sulfa (Sulfonamide AdvReac Itching Verified 09/07/17 15:30 Antibiotics) Date of admission: 09/07/17 20:04 Primary care physician: PCP NONE Consults: 09/08/17 13:02 Consult to Neurology [CONS] Routine Consulting Provider: Neurology [facility] Reason for Consult: Headache, n/v, weakness Time Notified: 12:00 Call Completed: Yes Discharging clinician: Andreina Cotter Anticipated date of discharge: 09/09/17 - Constitutional Vitals: Temp Pulse Resp BP Pulse Ox 98.3 F 69 18 107/63 95 09/09/17 07:38 09/09/17 07:38 09/09/17 07:38 09/09/17 07:38 09/09/17 07:38 General appearance: Present: cooperative, A&O X 3, pleasant, no acute distress, answers questions appropriately - Head Head exam: Present: atraumatic, normal inspection, normocephalic - Eye Eye exam: Present: normal appearance, conjuntiva pink, sclera anicteric - Neck Neck exam general surgery: Present: supple, trachea midline. Absent: lymphadenopathy, tenderness - Respiratory Respiratory exam: Present: CTAB. Absent: accessory muscle use, chest wall tenderness, rales, respiratory distress, rhonchi, wheezes - Cardiovascular Cardiovascular exam: Present: RRR, +S1, +S2. Absent: diastolic murmur, gallop, rubs, systolic murmur - GI/Abdominal GI/Abdominal exam: Present: normal bowel sounds, soft. Absent: distended, hepatomegaly, tenderness - Extremities Exam Extremities exam: Present: normal capillary refill, normal inspection, warm, radial pulses palpable and symmetrical. Absent: calf tenderness, cyanotic, pedal edema, tenderness - Neurological Exam Neurological exam: Present: alert, oriented X3, no focal deficits, strengths equal and symetr throughout. Absent: altered, motor sensory deficit, facial droop, speech deficit - Skin Skin exam: Present: dry, intact, normal color, warm. Absent: rash - Patient Status Disposition: Home, Self-Care Condition: Good Functional capacity at discharge: independent ambulation Overall status at discharge: patient is back to baseline - Discharge Instructions Follow Up With: NONE,PCP [Primary Care Provider] - Additional Instructions: Please follow up with your PCP in the next week for management of your blood pressure and medications. Take your medications as directed. There are 2 new prescriptions at your pharmacy. You might need to be anticoagulated for your a-fib, when you visit cardiology on 09/14, they might discuss this with you. Return to your normal diet and exercise and resume your normal activities. - Diet and Activity Activity: increase activity as tolerated Diet: low fat, low cholesterol
[2017-09-09 11:34] VITALS: BP 122/68
--- NOTE | 2017-09-09 14:00 | Neurology Progress Note ---
Date of Encounter: 09/09/17 Time of Encounter: 10:57 Assessment and Plan (1) Hypertensive encephalopathy Current Visit: Yes Status: Acute This patient's hypertensive encephalopathy has resolved. She is now back to her normal baseline. I am concerned however that she has experienced a prior episode of this few months ago. Persistent monitoring of her blood pressure is absolutely necessary. I suggested that she perform frequent home checks and keep a journal of her findings with regard to time of day, whether not she is up she said or stressed and other activities. She should follow-up with her primary care provider after discharge. I would recommend aggressive stroke risk factor management. May discharge her at your discretion. I spoke spoke with her family at length today regarding their concerns. Subjective Interval history: The chart was reviewed, the patient was seen and examined. Viky is currently back to her normal baseline. She began to improve significantly as the day went on yesterday. By yesterday evening she was back to her normal baseline. She denies any headache, denies any confusion. Her blood pressure is better. As I mentioned in my previous note, the MRI scan does reveal severe deep white matter changes ischemic changes. Echocardiogram was negative. Objective - Constitutional Vitals: Temp Pulse Resp BP Pulse Ox 97.9 F 72 16 122/68 99 09/09/17 11:22 09/09/17 11:22 09/09/17 11:22 09/09/17 11:22 09/09/17 11:22 - Neurological Exam Motor Examination: Present: other (It was difficult to assess strength in the traditional neurologic manner she remains a bit somnolent and confused. However she has normal tone throughout. No focal or lateralized deficits are present. She does have a titubation head tremor.) Sensation intact: Present: intact Mental Status Examination: Present: awake, oriented to person, oriented to place , oriented to time, drowsy Cranial nerve examination: Present: PERRL, EOMI, sensory to face intact, mastication intact, no facial asymmetry is present, no dysarthria, tongue protrudes midline Results - Laboratory Findings CBC and BMP: 09/09/17 06:50 09/09/17 06:50 Abnormal lab findings: Abnormal lab results PT 12.3 Seconds (9.4-12.1) H 09/08/17 03:27 Thyroxine (T4) 11.03 mcg/dL (5.50-11.00) H 09/08/17 03:27 Consult Discharge Plan - Plan Instructions: Aspirin (By mouth), Rivaroxaban (By mouth), Chronic Hypertension (DC), Hypertensive Crisis (DC) Additional Instructions: Please follow up with your PCP in the next week for management of your blood pressure and medications. Take your medications as directed. There are 2 new prescriptions at your pharmacy. You might need to be anticoagulated for your a-fib, when you visit cardiology on 09/14, they might discuss this with you. Return to your normal diet and exercise and resume your normal activities. Referrals: NONE,PCP [Primary Care Provider] - Prescriptions: Aspirin 81 mg PO DAILY #30 tab.chew Rivaroxaban [Xarelto] 20 mg PO DAILY #30 tablet
--- NOTE | 2017-09-10 08:58 | Electrocardiograph Report ---
[place] [id number] Test Date: 2017-09-07 Pat Name: Viky Fernández Department: 113 Room: 3B21 Gender: F Customer Relations Specialist: : [id number] Requested By: Rudy Levy Order Number: [id number] Reading MD: Tristin Donahue Measurements Intervals Moira Rate: 64 P: 67 MO: 165 QRS: 52 QRSD: 90 T: 56 QT: 437 QTc: 446 Interpretive Statements SINUS RHYTHM Electronically Signed On 09-10-2017 8:56:58 EDT by Tristin Donahue
== END 2017-09-09 14:35 | disposition home or self-care (01) | DRG 78 ==
LOC: 3BNU
PROVIDERS: ADMIT Internal Medicine; ATTEND Internal Medicine

== ENCOUNTER 2018-01-14 15:21 | Inpatient (IN) ==
[2018-01-14] MEDS ORDERED: Naloxone 0.4 MG/ML INJ IVP PRN (18:44)
[2018-01-14] MEDS ORDERED: Aspirin 81 MG TAB.CHEW PO SCH (19:00)
[2018-01-14] MEDS ORDERED: traMADol 50 MG TABLET PO ONE ×2 (19:43→23:03)
--- NOTE | 2018-01-14 22:48 | Internal Med History&Physical ---
Date of Encounter: 01/14/18 Time of Encounter: 19:00 Internal Medicine - H&P: HPI Admitted From: Home Plans for Post Hospital Care: Home History of present illness: The patient is a 72-year-old woman. We got her from [facility] emergency department. It was today morning around around 8 AM, when she suddenly developed left-sided weakness and left-sided facial droop. About the same time she noticed difficulty walking; like she could not keep her balance. Not associated with any headache or visual disturbances. Not associated with dizziness or lightheadedness. She was by herself at home. Eventually, she arrived to the emergency room around 1:30 PM with her . CT done at admission showed an ischemic CVA on the right side of her brain. They did not offer her TPA treatment, as she was outside the therapeutic window. She was transferred to our hospital for further evaluation and treatment. The patient was diagnosed with paroxysmal atrial fibrillation sometime in September of this year. There was some discussion about putting her on Xarelto. She would have to stop Primidone, the medication used for treatment of her tremor. She continues to take a preemie down a. She is not taking Xarelto or similar anticoagulation. The patient felt good yesterday. I can see that her EKG done at [facility] showed normal sinus rhythm. I will telemetry is showing sinus rhythm, too. PAST MEDICAL HX: PAF. She is treated for hypertension, hyperlipidemia, GERD and some kind of tremor (either familial tremor or essential tremor). She was diagnosed with pulmonary embolus a few years ago; treated in [facility]. She has never been diagnosed with TIA or CVA. The patient has never smoked. She has never been diagnosed with asthma. However, she does have recurrent "bronchitis". She had multiple surgeries including appendectomy, cholecystectomy, lumbar spine surgery, neck surgery, left knee replacement and bladder surgeries. PAST FAMILY HX: See below.. PAST SOCIAL HX: See below.. REVIEW OF SYSTEMS: All 14 organ systems were reviewed by me with the patient. Positive and pertinent negative findings are listed above. The rest of organ systems is negative. PHYSICAL EXAM: Skin: Free of rash and discoloration. Eyes: Sclera is white. There is no discharge from eyes. ENMT: Oral/pharyngeal mucosa is normal in appearance. There is no discharge from nose or ears. Respiratory: Normal breath sounds with no crackles and wheezes bilaterally. CV: Heart is regular with no gallop or murmur. GI: Abdomen is flat and soft with no palpable mass or visceromegaly. : There is no tenderness in patient's flanks bilaterally. Neuro exam: The patient does have mild/moderate weakness in left extremities. I cannot appreciate any facial droop. Her eye movements are normal. Examination of gait has been deferred. Psychiatric: He has normal affect. His thought process is appropriate to the situation. ADDITIONAL DATA: I mentioned the results of CT of head and EKGdone at [facility] emergency department. They did BUN and creatinine. There were 28 and 1.24 respectively. With a GFR of 42. A/P: An ischemic CVA with left-sided weakness in a patient with underlying paroxysmal atrial fibrillation. I discussed this case with Dr. Joshi, neurology. I will keep her on aspirin and Zocor. It will be decided later, whether this patient needs IV heparin drip or equivalent. Her other problems are mentioned by me above in past medical history. They seem to be stable/under control. We are in the process of obtaining her home medications. Meanwhile, I will keep her on low-dose of [id number] mg by mouth twice a day. Past Med Surg Social Fam HX - Past Medical History Medical history: arthritis, atrial fibrillation, COPD, GERD, hyperlipidemia, hypertension, pulmonary embolus, other Additional medical history: Parkinson's Psychiatric history: no psych history - Past Surgical History Surgical History: appendectomy, cholecystectomy, knee replacement, orthopedic, other, other Additional surgical history: Bladder surgery - Social History Smoking Status: Never smoker Smokeless Tobacco Status: No Alcohol use: none Drug use: none - Family History Mother Living Status: Cause of : Dementia Hx Family Cancer: Yes Hx Family Neurologic Disorders: Yes (alzhemiers, tremors) Father Living Status: Age at : 80 Cause of : OK and PNE Hx Family Cardiac Disorders: Yes (OK) Internal Medicine - H&P: Meds Oxybutynin [Ditropan] 5 mg PO BID 02/02/16 [History] Losartan/Hydrochlorothiazide [Losartan-Hctz 50-12.5 mg Tab] 1 tab PO DAILY 01/20/17 [History] Cholecalciferol (Vitamin D3) [Vitamin D3] 1,000 unit PO DAILY 06/22/17 [History] Meloxicam [Mobic] 15 mg PO DAILY 06/22/17 [History] Tizanidine HCl 4 mg PO TID PRN 06/22/17 [History] hydrOXYzine pamoate [HydrOXYzine Pamoate] 25 mg PO BID PRN 06/22/17 [History] Furosemide [Lasix] 40 mg PO DAILY PRN 06/23/17 [History] Primidone [Mysoline] 50 mg PO TID 06/23/17 [History] Aspirin 81 mg PO DAILY #30 tab.chew 09/09/17 [Rx] Rivaroxaban [Xarelto] 20 mg PO DAILY #30 tablet 09/09/17 [Rx] Allergy/AdvReac Type Severity Reaction Status Date / Time cephalexin [From Keflex] AdvReac Itching Verified 09/07/17 15:30 Sulfa (Sulfonamide AdvReac Itching Verified 09/07/17 15:30 Antibiotics) - Constitutional Vitals: Temp Pulse Resp BP Pulse Ox 98.1 F 87 16 154/92 97 01/14/18 20:33 01/14/18 20:33 01/14/18 20:33 01/14/18 20:33 01/14/18 20:33 General appearance: Present: A&O X 3, answers questions appropriately Exam: xx Internal Med - H&P Results - Impressions ITS Impressions Brain MRI 01/14/18 19:41 IMPRESSION: Acute infarct in the right posterior cerebral artery territory with petechial hemorrhage. Critical results were called by Dr. Nicko Morales MD to Santiago Chadwick Edinlakesha on 01/14/2018 at 9:39 p.m.. D/ / 01/14/2018 21:33:20 Nicko Morales MD / jamal Interpreting Provider: Nicko Morales MD - Assessment and plan (1) Acute CVA (cerebrovascular accident) Current Visit: Yes Status: Acute (2) PAF (paroxysmal atrial fibrillation) Current Visit: Yes Status: Chronic (3) HTN (hypertension) Current Visit: Yes Status: Chronic Qualifiers: Hypertension type: essential hypertension Qualified Code(s): I10 - Essential (primary) hypertension (4) HLD (hyperlipidemia) Current Visit: Yes Status: Chronic Qualifiers: Hyperlipidemia type: unspecified Qualified Code(s): E78.5 - Hyperlipidemia, unspecified - Time Spent With Patient Total time spent is greater than 50% in coordination of care (as documented) at patient's floor/unit and/or counseling patient: 25 - 35 minutes
[2018-01-14 23:10] VITALS: BP 167/102
--- NOTE | 2018-01-14 23:23 | Discharge Summary ---
Orders not resulted at time of discharge: Pending orders 01/14/18 18:55 EKG [ECG 12 lead ECG] [ECG] Routine 01/14/18 18:56 EV echocardiogram Routine Date of Encounter: 01/14/18 Time of Encounter: 23:09 - Discharge Diagnosis (1) Acute CVA (cerebrovascular accident) Priority: Primary Status: Acute (2) PAF (paroxysmal atrial fibrillation) Priority: Secondary Status: Chronic (3) HTN (hypertension) Priority: Secondary Status: Chronic Qualifiers: Hypertension type: essential hypertension Qualified Code(s): I10 - Essential (primary) hypertension (4) HLD (hyperlipidemia) Priority: Secondary Status: Chronic Qualifiers: Hyperlipidemia type: unspecified Qualified Code(s): E78.5 - Hyperlipidemia, unspecified Hospital course: Ms. Fernández is a 72 year old female who was admitted earlier this afternoon/evening for suspected stroke. She initially presented to [facility] re she had a head CT suggesting subacute stroke and was recommended to have MRI and further workup. She presented outside the therapeutic window, and so she was not offered TPA. Shortly after she arrived here to [facility], she complained of severe acute onset headache. This was shortly after shift change and we overnight caregiver hospitalists were contacted about patient complaining of severe headache in the setting of suspected stroke. We ordered STAT MRI, which revealed an acute infarct in the right posterior cerebral artery with petechial hemorrhage. Initially, we were concerned the patient was on anticoagulation (Xarelto), but when I assessed her, she confirmed she does NOT take any anticoagulation anymore. She does have some focal deficits in the form of numbness, paresthesias, and weakness in her left arm and leg compared to her right. She has no facial droop, speech deficits, and no difficulty swallowing. Because of the concern for worsening hemorrhagic conversion, we called our neurologist, Dr. Joshi, and spoke with him. He agrees that we should transfer patient [facility] capability, especially in the setting of severe headache. I talked to patient and her daughter about the recommendations, and they were in agreement to transfer request. I therefore contacted [facility] and spoke with their transfer center. Patient has been accepted to [facility] Hospitalists and Dr. Pyle from the stroke team. Upon reassessment of the patient, she is having worsening headache again. Her BP is running between 150-160 systolic and 90-100 diastolic. Currently, we are arranging transport with [facility] transport team (Air transport if weather is ok, ground otherwise). Patient and family have been updated and are agreeable with the plan. - Time Spent with Patient Total time spent providing and/or coordinating discharge services: - Discharge Medications Home Medications: Oxybutynin [Ditropan] 5 mg PO BID 02/02/16 [History] Losartan/Hydrochlorothiazide [Losartan-Hctz 50-12.5 mg Tab] 1 tab PO DAILY 01/20/17 [History] Cholecalciferol (Vitamin D3) [Vitamin D3] 1,000 unit PO DAILY 06/22/17 [History] Meloxicam [Mobic] 15 mg PO DAILY 06/22/17 [History] Tizanidine HCl 4 mg PO TID PRN 06/22/17 [History] hydrOXYzine pamoate [HydrOXYzine Pamoate] 25 mg PO BID PRN 06/22/17 [History] Furosemide [Lasix] 40 mg PO DAILY PRN 06/23/17 [History] Primidone [Mysoline] 50 mg PO TID 06/23/17 [History] Aspirin 81 mg PO DAILY #30 tab.chew 09/09/17 [Rx] Rivaroxaban [Xarelto] 20 mg PO DAILY #30 tablet 09/09/17 [Rx] Allergies/Adverse Reactions: Allergy/AdvReac Type Severity Reaction Status Date / Time cephalexin [From Keflex] AdvReac Itching Verified 09/07/17 15:30 Sulfa (Sulfonamide AdvReac Itching Verified 09/07/17 15:30 Antibiotics) Date of admission: 01/14/18 16:28 Consults: 01/14/18 18:54 Consult to Neurology [CONS] Routine Consulting Provider: [facility] Reason for Consult: SUBACUTE ISCHEMIC CVA; PAF Time Notified: 18:30 Call Completed: No - Constitutional Vitals: Temp Pulse Resp BP Pulse Ox 98.1 F 87 16 154/92 97 01/14/18 20:33 01/14/18 20:33 01/14/18 20:33 01/14/18 20:33 01/14/18 20:33 General appearance: Present: A&O X 3, answers questions appropriately Exam: see below - Eye Eye exam: Present: EOMI, PERRL - Neck Neck exam general surgery: Present: supple - Respiratory Respiratory exam: Present: CTAB. Absent: rales, rhonchi, tachypnea - Cardiovascular Cardiovascular exam: Present: irregular rhythm, +S1, +S2. Absent: diastolic murmur, systolic murmur - GI/Abdominal GI/Abdominal exam: Present: normal bowel sounds, soft. Absent: splenomegaly, tenderness - Extremities Exam Extremities exam: Present: normal capillary refill, warm, radial pulses palpable and symmetrical. Absent: pedal edema, tenderness - Neurological Exam Neurological exam: Present: alert, CN II-XII intact. Absent: facial droop, speech deficit Additional comments: left sided weakness, parasthesias, and subtle numbness in her left foot, hand/fingers - Psychiatric Psychiatric exam: Present: normal affect, normal mood - Patient Status Disposition: Transfer Other Condition: Critical - Discharge Instructions
== END 2018-01-14 23:59 | disposition other institution (70) | DRG 65 ==
LOC: 2NENU 16:28
PROVIDERS: ADMIT Internal Medicine; ATTEND Internal Medicine